=== PATIENT | female | born 2000 | race Caucasian/White ===

== ENCOUNTER 2022-08-08 14:27 | Emergency (ER) | payer MEDICAID | END 2022-08-08 16:32 | disposition home or self-care (01) | LOC: ERS 14:27 | DX: J02.9 Acute pharyngitis, unspecified (principal); N89.8 Other specified noninflammatory disorders of vagina; F17.290 Nicotine dependence, other tobacco product, uncomplicated | CPT/HCPCS: 87081; 87430; 99283 ==

== ENCOUNTER 2022-09-19 16:56 | Emergency (ER) | payer MEDICAID ==
[2022-09-19] MEDS ORDERED: Acetaminophen 500 MG TAB ONE (17:53)
== END 2022-09-19 19:15 | disposition home or self-care (01) ==
LOC: ERS 16:56
DX: B34.9 Viral infection, unspecified (principal); Z20.822 Contact with and (suspected) exposure to COVID-19; F17.290 Nicotine dependence, other tobacco product, uncomplicated
CPT/HCPCS: 87804; 99284; U0003; U0005

== ENCOUNTER 2022-10-26 14:09 | Emergency (ER) | payer MEDICAID | END 2022-10-26 14:42 | disposition home or self-care (01) | LOC: ERS 14:09 | DX: B00.1 Herpesviral vesicular dermatitis (principal); F17.290 Nicotine dependence, other tobacco product, uncomplicated | CPT/HCPCS: 99283 ==

== ENCOUNTER 2023-06-30 12:55 | Emergency (ER) | payer MEDICAID ==
[2023-06-30 14:00] LABS: Bilirubin Negative (Negative); Blood, Urine Negative (Negative); Clarity Clear (Clear); Glucose, Urine (Dipstick) Normal (Negative); Ketone, Urine Negative (Negative); Leukocyte 250 Leu/uL (Negative); Nitrite Negative (Negative); Protein, Urine (Dipstick) Negative (Neg-Trace); Specific Gravity, Urine 1.004 (1.002-1.036); Urobilinogen Normal mg/dL (Less than 2); pH, Urine 5.5 (5.0-9.0)
[2023-06-30 14:02] LABS: Pregnancy Test - Urine (BHCG) Negative (Negative); Pregu Control Background? CLEAR/WHITE (CLR/WHITE); Pregu Control Bar Appear? YES (CONTROL BAR); Specific Gravity 1.004 (1.002-1.036)
[2023-06-30 14:15] LABS: CAUTI Indications for Culture Pelvic or flank pain; RBC/HPF 0-3 HPF (0-3); Squamous Epithelial 0-3 HPF (0-3)
[2023-06-30 14:16] LABS: Renal Epithelial 0-3 HPF (None Seen)
[2023-06-30 14:17] LABS: Bacteria/HPF 1+ HPF (None Seen)
[2023-06-30 14:19] LABS: Urine Culture Reflex No No
[2023-07-01 09:55] LABS: Chlamydia by PCR, Vaginal Swab Not Detected (NotDetected); GC by PCR, Vaginal Swab Not Detected (NotDetected); Tric.vaginalis PCR,Vaginal Sw Not Detected (NotDetected)
== END 2023-06-30 15:36 | disposition home or self-care (01) ==
LOC: ERS 12:55
DX: R10.2 Pelvic and perineal pain (principal); F17.290 Nicotine dependence, other tobacco product, uncomplicated
CPT/HCPCS: 81001; 81025; 87480; 87491; 87510; 87591; 87660; 87661; 99283